=== PATIENT | female | born 1975 | race Caucasian/White ===

== ENCOUNTER 2020-11-11 17:03 | Emergency (ER) | payer OTHER, SELFPAY ==
[2020-11-11] VITALS (14 sets, daily range): BP systolic 139–216; BP diastolic 91–122; PULSE 67–96; RESP 16–23; O2SAT 96–100; BMI 24.5
--- NOTE | 2020-11-11 17:27 | DI.RAD.S_ITS ---
PROCEDURE: XR CHEST 1V INDICATIONS: Hypertension TECHNIQUE: One view of the chest was acquired. COMPARISON: None. FINDINGS: Surgical changes and devices: None. Lungs and pleura: Lungs are clear. No pleural effusions or pneumothorax. Mediastinum: Mediastinal contours appear normal. Heart size is normal. Bones and chest wall: No suspicious bony lesions. Overlying soft tissues appear unremarkable. IMPRESSION: 1. No acute cardiopulmonary disease. Dictated by: Rodger Bah M.D. on 11/11/2020 at 18:30 Approved by: Rodger Bah M.D. on 11/11/2020 at 18:31
[2020-11-11 17:33] LABS: Add Manual Diff / Slide Review NO; Basophils Absolute Auto 100 /uL (0-100); Basophils Percent Auto 0.7 % (0-2); Eosinophils Absolute Auto 100 /uL (0-450); Eosinophils Percent Auto 1.4 % (2-4); Hematocrit 40.8 % (36-46); Hemoglobin 13.8 g/dL (12.0-16.0); Lymphocytes Absolute Auto 1500 /uL (1100-4500); Lymphocytes Percent Auto 21.2 % (25-40); Mean Corpuscular HGB Conc 33.9 % (30-36); Mean Corpuscular Hemoglobin 29.5 PG (26-34); Mean Corpuscular Volume 86.9 fL (80-100); Monocytes Absolute Auto 700 /uL (0-900); Monocytes Percent Auto 10.2 % (3-14); Neutrophils Absolute Auto 4700 /uL (1500-7000); Neutrophils Percent Auto 66.5 % (50-75); Platelet Count 283 X10^3/uL (150-400); Red Blood Cell Count 4.69 X10^6/uL (4.0-5.2); Red Cell Distribution Width 12.2 % (11.6-14.8); White Blood Cell Count 7.1 X10^3/uL (4.5-11.0)
[2020-11-11 17:34] LABS: Prothrombin Time 11.5 SECONDS (10.1-12.7)
[2020-11-11 17:38] LABS: Alanine Aminotransferase 23 IU/L (<35); Albumin 4.4 g/dL (3.5-5.0); Albumin Globulin Ratio 1.3 (1.0-2.8); Alkaline Phosphatase 63 U/L (38-126); Aspartate Aminotransferase 33 IU/L (14-36); BUN Creatinine Ratio 23.5 (6-22); Bilirubin Total 0.5 mg/dL (0.2-1.3); Blood Urea Nitrogen 16 mg/dL (7-17); Calcium 9.2 mg/dL (8.4-10.2); Carbon Dioxide 29 mmol/L (22-32); Chloride 102 mmol/L (98-107); Creatine Kinase 69 U/L (30-135); Estimated Glomerular Filt Rate > 60.0 mL/min (>60); Globulin 3.5 g/dL (1.7-4.1); Glucose 101 mg/dL (70-100); HEMOLYSIS < 15 (0-50); Lipase 173 U/L (23-300); Potassium 3.5 mmol/L (3.4-5.1); Sodium 137 mmol/L (137-145); Total Protein 7.9 g/dL (6.3-8.2)
[2020-11-11 17:50] LABS: NT-proBNP (BNP-Adult 18+) 62 pg/mL (<125); Troponin I < 0.012 ng/mL (0.01-0.034)
[2020-11-11] MEDS: ACETAMINOPHEN 325 MG TABLET 650 MG PO (19:07)
[2020-11-11 19:39] LABS: Troponin I < 0.012 ng/mL (0.01-0.034)
--- NOTE | 2020-11-11 20:08 | ED_ITS ---
HPI - General Adult <NIR Oliveira - Last Filed: 11/11/20 20:26> General Chief complaint: Hypertension Stated complaint: HIGH BLOOD PRESSURE HEADACHES Time Seen by Provider: 11/11/20 17:15 Source: patient Mode of arrival: Ambulatory Limitations: no limitations History of Present Illness HPI narrative: This is a 45 year female, nonsmoker, who has past medical history significant for MS and takes interferon treatment 3 times a week presents to ED with chief complain of elevated blood pressure reading today. Patient does not have known hypertension as diagnosis. Patient was at dental office and blood pressure were elevated up to 180/110 and blood pressure was checked several times at the office. Patient denies chest pain, dyspnea, facial droops, paralysis, increasing numbness from her baseline MS symptoms. She reports some headaches, mild dizziness and not feeling myself and has not been having a good week with MS. Patient's usual MS symptoms as tingling in legs and face which is slightly worse this week. Patient's neurologist Dr. Chand at [facility]. Patient denies any changes in medication recently. Related Data Allergies Allergy/AdvReac Type Severity Reaction Status Date / Time No Known Drug Allergies Allergy Verified 11/11/20 17:17 Review of Systems <NIR Oliveira - Last Filed: 11/11/20 20:26> Review of Systems Narrative: General: Denies fever, chills, fatigue, malaise, sweats. HEENT: See HPI Respiratory: Denies dyspnea, cough, wheezing, hemoptysis, sputum. Cardiovascular: Denies chest pain, palpitations, orthopnea, edema. Gastrointestinal: Denies nausea, vomiting, abdominal pain, diarrhea, constipation, melena. : Denies dysuria, frequency, incontinence, hematuria, urinary retention. Musculoskeletal: Denies weakness, joint pain or bony pain. Skin: Denies rash, skin lesions, or other. Neurologic: See HPI Psychiatric: No concerning psychosocial issues. 12-point review of systems is negative except for those stated above. Patient History <NIR Oliveira - Last Filed: 11/11/20 20:26> Medical History Insomnia Multiple sclerosis Social History Smoking Status: Never smoker Smoking Status: Never smoker alcohol intake frequency: holidays/special occasions only Substance Use Type: does not use Exam <NIR Oliveira - Last Filed: 11/11/20 20:26> Narrative Exam Narrative: GEN: Alert, oriented x 3, well appearing and nourished, and in no acute distress. Head: Normal cephalic, atraumatic. No scalp or temporal tenderness, palpable mass or rash. EYES: Pupils are equal, round, and reactive to light and accommodation. Extraocular muscles are intact bilaterally. There is no subconjunctival hemorrhage, exudate and sclera non-icteric. ENT: Hearing grossly intact. Turbinate without erythema or swelling. Mucous membrane moist, no mucosal lesion. Throat without erythema, tonsillar hypertrophy or exudate. Uvula in midline, airway patent. Neck: Trachea in midline. No JVD, non-tender without lymphadenopathy. No masses or thyroid megaly. Supple, non-tender and no meningeal signs. CARDIAC: Normal regular rate and rhythm without murmurs, gallops, or rubs. No chest wall tenderness. No peripheral edema, cyanosis or pallor. Capillary refill is less than 2 seconds. No carotid bruits. RESPIRATORY: Lungs are cleat to auscultate bilaterally. No cough, wheezes, rales, or rhonchi. No stridor, respiratory distress, increase work of breathing, or accessary muscle used. ABD: Abdomen soft, nontender and non-distended. No guarding or rebound tenderness to palpate. Bowel sounds are normal in all 4 quadrants. There is no palpable masses or organomegaly. EXT: Full painless ROM of all extremities with no loss of sensation, strength, effusion or edema. SKIN: Warm, dry, normal color for patient. No erythema, lesions or rash. BACK: Nontender without deformity or crepitance. No flank tenderness. NEUROLOGICAL: Alert and oriented to place, time and person. No facial droops, dysphasia. CN II-XII intact. Strength and sensation symmetric and intact throughout. Cerebellar testing normal. PSYCHIATRIC: Good judgement and reason, without hallucinations, abnormal affect or abnormal behaviors during the examination. Patient is not suicidal. Initial Vital Signs Initial Vital Signs: Vital Signs Pulse Rate 96 H 11/11/20 17:05 Respiratory Rate 18 11/11/20 17:05 Blood Pressure 216/122 H 11/11/20 17:05 Pulse Oximetry 98 11/11/20 17:05 <Calixto Schultz MD - Last Filed: 11/11/20 23:55> Initial Vital Signs Initial Vital Signs: Vital Signs Pulse Rate 96 H 11/11/20 17:05 Respiratory Rate 18 11/11/20 17:05 Blood Pressure 216/122 H 11/11/20 17:05 Pulse Oximetry 98 11/11/20 17:05 Scores <NIR Oliveira - Last Filed: 11/11/20 20:26> GCS [place] coma scale eye opening: Spontaneous [place] coma scale verbal response: Orientated [place] coma scale motor response: Obey commands [place] coma scale total score: 15 NIH Stroke Scale Level of Conciousness: Alert, keenly responsive Ask month/age: Answers both questions correctly. Open/close eyes, close hand: Performs both tasks correctly Best gaze horizontal: Normal Visual powell: No visual loss Facial palsy: Normal symetrical movement Left arm drift: No drift for full 10 sec Right arm drift: No drift for full 10 sec Left leg drift: No drift for full 5 sec Right leg drift: No drift for full 5 sec Limb ataxia: Absent Sensory on face/arms/legs: Normal, no sensory loss Best language: No aphasia, normal Dysarthria: Normal Extinction or inattention: No abnormality Total NIH Stroke scale score: 0 Course <NIR Oliveira - Last Filed: 11/11/20 20:26> Orders Ordered: ED Orders 11/11/20 17:19 Complete Blood Count AUTO DIFF Stat Comprehensive Metabolic Panel Stat Lipase Stat NT-proBNP (BNP-Adult 18+) Stat Prothrombin Time INR Stat Troponin & CK Cardiac Panel Stat 11/11/20 17:27 XR chest 1V Stat EKG-12 Lead Stat 11/11/20 19:12 Troponin I Stat Discontinued Medications Acetaminophen (Acetaminophen 325 Mg Tablet) 650 mg PO NOW ONE Stop: 11/11/20 19:04 Last Admin: 11/11/20 19:07 Dose: 650 mg Documented by: QUYNH Vital Signs Vital signs: Vital Signs - 8 hr 11/11/20 17:05 11/11/20 17:13 11/11/20 17:21 Pulse Rate 96 H 96 H 96 H Respiratory Rate 18 18 Blood Pressure 216/122 H 203/106 H Pulse Oximetry 98 100 100 11/11/20 17:30 11/11/20 17:57 11/11/20 18:00 Pulse Rate 82 82 75 Respiratory Rate 18 16 18 Blood Pressure 184/100 H 183/91 H Pulse Oximetry 99 97 100 11/11/20 18:15 11/11/20 18:30 11/11/20 18:46 Pulse Rate 79 79 85 Respiratory Rate 18 16 20 Blood Pressure 150/92 H 166/99 H Pulse Oximetry 100 100 100 11/11/20 19:00 11/11/20 19:01 11/11/20 19:30 Pulse Rate 82 79 77 Respiratory Rate 20 23 21 Blood Pressure 152/92 H 150/96 H Pulse Oximetry 100 99 97 11/11/20 19:45 11/11/20 20:00 Pulse Rate 67 76 Respiratory Rate 17 17 Blood Pressure 146/96 H 139/93 H Pulse Oximetry 96 96 <Calixto Schultz MD - Last Filed: 11/11/20 23:55> Orders Ordered: ED Orders 11/11/20 17:19 Complete Blood Count AUTO DIFF Stat Comprehensive Metabolic Panel Stat Lipase Stat NT-proBNP (BNP-Adult 18+) Stat Prothrombin Time INR Stat Troponin & CK Cardiac Panel Stat 11/11/20 17:27 XR chest 1V Stat EKG-12 Lead Stat 11/11/20 19:12 Troponin I Stat Discontinued Medications Acetaminophen (Acetaminophen 325 Mg Tablet) 650 mg PO NOW ONE Stop: 11/11/20 19:04 Last Admin: 11/11/20 19:07 Dose: 650 mg Documented by: QUYNH Vital Signs Vital signs: Vital Signs - 8 hr 11/11/20 17:05 11/11/20 17:13 11/11/20 17:21 Pulse Rate 96 H 96 H 96 H Respiratory Rate 18 18 Blood Pressure 216/122 H 203/106 H Pulse Oximetry 98 100 100 11/11/20 17:30 11/11/20 17:57 11/11/20 18:00 Pulse Rate 82 82 75 Respiratory Rate 18 16 18 Blood Pressure 184/100 H 183/91 H Pulse Oximetry 99 97 100 11/11/20 18:15 11/11/20 18:30 11/11/20 18:46 Pulse Rate 79 79 85 Respiratory Rate 18 16 20 Blood Pressure 150/92 H 166/99 H Pulse Oximetry 100 100 100 11/11/20 19:00 11/11/20 19:01 11/11/20 19:30 Pulse Rate 82 79 77 Respiratory Rate 20 23 21 Blood Pressure 152/92 H 150/96 H Pulse Oximetry 100 99 97 11/11/20 19:45 11/11/20 20:00 Pulse Rate 67 76 Respiratory Rate 17 17 Blood Pressure 146/96 H 139/93 H Pulse Oximetry 96 96 Medical Decision Making <NIR Oliveira - Last Filed: 11/11/20 20:26> Differential Diagnosis Differential Diagnosis: Hypertension, situational stress, ACS, STEMI, stroke Medical Records Medical records reviewed: Yes I reviewed the patient's medical records. Lab Data Lab results reviewed: Yes I reviewed the patient's lab results. Result diagrams: 11/11/20 17:19 11/11/20 17:19 Labs: Lab Results 11/11/20 11/11/20 11/11/20 Range/Units 17:19 17:19 17:19 WBC 7.1 (4.5-11.0) X10^3/uL RBC 4.69 (4.0-5.2) X10^6/uL Hgb 13.8 (12.0-16.0) g/dL Hct 40.8 (36-46) % MCV 86.9 (80-100) fL MCH 29.5 (26-34) PG MCHC 33.9 (30-36) % RDW 12.2 (11.6-14.8) % Plt Count 283 (150-400) X10^3/uL Neut % (Auto) 66.5 (50-75) % Lymph % (Auto) 21.2 L (25-40) % [place] % (Auto) 10.2 (3-14) % Eos % (Auto) 1.4 L (2-4) % Baso % (Auto) 0.7 (0-2) % Neut # (Auto) 4700 (5949-9732) /uL Lymph # (Auto) 1500 (7868-6814) /uL [place] # (Auto) 700 (0-900) /uL Eos # (Auto) 100 (0-450) /uL Baso # (Auto) 100 (0-100) /uL PT 11.5 (10.1-12.7) SECONDS INR 1.0 (0.9-1.3) Sodium 137 (137-145) mmol/L Potassium 3.5 (3.4-5.1) mmol/L Chloride 102 (98-107) mmol/L Carbon Dioxide 29 (22-32) mmol/L BUN 16 (7-17) mg/dL Creatinine 0.68 (0.52-1.04) mg/dL Estimated GFR > 60.0 (>60) mL/min BUN/Creatinine Ratio 23.5 H (6-22) Glucose 101 H (70-100) mg/dL Calcium 9.2 (8.4-10.2) mg/dL Total Bilirubin 0.5 (0.2-1.3) mg/dL AST 33 (14-36) IU/L ALT 23 (<35) IU/L Alkaline Phosphatase 63 (38-126) U/L Total Creatine Kinase 69 (30-135) U/L CK-MB (CK-2) TNP CK-MB (CK-2) Rel Index TNP Troponin I < 0.012 (0.01-0.034) ng/mL NT-Pro-B Natriuret Pep 62 (<125) pg/mL Total Protein 7.9 (6.3-8.2) g/dL Albumin 4.4 (3.5-5.0) g/dL Globulin 3.5 (1.7-4.1) g/dL Albumin/Globulin Ratio 1.3 (1.0-2.8) Lipase 173 (23-300) U/L //20 Range/Units 19:12 WBC (4.5-11.0) X10^3/uL RBC (4.0-5.2) X10^6/uL Hgb (12.0-16.0) g/dL Hct (36-46) % MCV (80-100) fL MCH (26-34) PG MCHC (30-36) % RDW (11.6-14.8) % Plt Count (150-400) X10^3/uL Neut % (Auto) (50-75) % Lymph % (Auto) (25-40) % [place] % (Auto) (3-14) % Eos % (Auto) (2-4) % Baso % (Auto) (0-2) % Neut # (Auto) (9568-8192) /uL Lymph # (Auto) (4392-8575) /uL [place] # (Auto) (0-900) /uL Eos # (Auto) (0-450) /uL Baso # (Auto) (0-100) /uL PT (10.1-12.7) SECONDS INR (0.9-1.3) Sodium (137-145) mmol/L Potassium (3.4-5.1) mmol/L Chloride (98-107) mmol/L Carbon Dioxide (22-32) mmol/L BUN (7-17) mg/dL Creatinine (0.52-1.04) mg/dL Estimated GFR (>60) mL/min BUN/Creatinine Ratio (6-22) Glucose (70-100) mg/dL Calcium (8.4-10.2) mg/dL Total Bilirubin (0.2-1.3) mg/dL AST (14-36) IU/L ALT (<35) IU/L Alkaline Phosphatase (38-126) U/L Total Creatine Kinase (30-135) U/L CK-MB (CK-2) CK-MB (CK-2) Rel Index Troponin I < 0.012 (0.01-0.034) ng/mL NT-Pro-B Natriuret Pep (<125) pg/mL Total Protein (6.3-8.2) g/dL Albumin (3.5-5.0) g/dL Globulin (1.7-4.1) g/dL Albumin/Globulin Ratio (1.0-2.8) Lipase (23-300) U/L Imaging Data Chest x-ray: Radiologist's Impression: [address] [id number] ReportSigned Patient: Yana Teague LMR#: [id number]: [id number]:[id number]/Sex: 45 / FDate of Service: 11/11/20Loc: EDAccession Number: [id number] Procedure: XR chest 1V Ordering Provider: José Antonio Franklin D.O. PROCEDURE: XR CHEST 1V INDICATIONS: Hypertension TECHNIQUE: One view of the chest was acquired. COMPARISON: None. FINDINGS: Surgical changes and devices: None. Lungs and pleura: Lungs are clear. No pleural effusions or pneumothorax. Mediastinum: Mediastinal contours appear normal. Heart size is normal. Bones and chest wall: No suspicious bony lesions. Overlying soft tissues appear unremarkable. IMPRESSION: 1. No acute cardiopulmonary disease. Dictated by: Rodger Bah M.D. on 11/11/2020 at 18:30 Approved by: Rodger Bah M.D. on 11/11/2020 at 18:31 ECG Data Attestation: I personally reviewed and interpreted this ECG as follows: Prior ECG tracings: not available for review Interpretation: Normal sinus rhythm rate at 71. Incomplete right bundle branch block Left dominant axis. OK interval 138, QRS duration 100, QT/QTC 382/[address] abnormality. [facility] Narrative Medical decision making narrative: This is a 45 year female who presents to ED with chief complain of elevated blood pressure today which she was noticed at dental office upto 180/110 with some headaches and dizziness as associated symptoms. Patient's neurological assessment was unremarkable. No facial droops, speech difficulty, paralysis, sensation impairment, vertigo symptoms. EKG shows normal sinus rhythm with incomplete right bundle branch block without acute ST changes but with nonspecific ST and normality. Chest x-ray without acute findings. CBC without indications for anemia or leukocytosis. Mild lymphocytopenia of 21.2 with eosinophil of 1.4. Normal coag test. Unremarkable chemistry test. Two sets of cardiac enzymes were negative. ProBNP was negative. Patient's blood pressure has improved from 216/122 on arrival to ED to gradually decrecased to 139/93. Patient was medicated with Tylenol for headache with marginal improvement. We discussed head CT to rule out other intracranial etiology and stroke evaluation upon arrival but with shared decision making with improving blood pressure, head CT scan was deferred with normal neurological exam. Patient advised to monitor blood pressure a couple of times in a day around the same time for next several days and to follow-up with primary care physician with the findings. Patient and spouse informed with extensive discussion that elevated blood pressure without indications for hyper tensive emergency or crisis. Patient verbalized understanding in agreement with treatment plan. Patient given copy of EKG to follow-up with primary care physician. <Calixto Schultz MD - Last Filed: 11/11/20 23:55> Lab Data Labs: Lab Results 11/11/20 11/11/2011/11/20 Range/Units 17:19 17:19 17:19 WBC 7.1 (4.5-11.0) X10^3/uL RBC 4.69 (4.0-5.2) X10^6/uL Hgb 13.8 (12.0-16.0) g/dL Hct 40.8 (36-46) % MCV 86.9 (80-100) fL MCH 29.5 (26-34) PG MCHC 33.9 (30-36) % RDW 12.2 (11.6-14.8) % Plt Count 283 (150-400) X10^3/uL Neut % (Auto) 66.5 (50-75) % Lymph % (Auto) 21.2 L (25-40) % [place] % (Auto) 10.2 (3-14) % Eos % (Auto) 1.4 L (2-4) % Baso % (Auto) 0.7 (0-2) % Neut # (Auto) 4700 (5175-3368) /uL Lymph # (Auto) 1500 (0471-9904) /uL [place] # (Auto) 700 (0-900) /uL Eos # (Auto) 100 (0-450) /uL Baso # (Auto) 100 (0-100) /uL PT 11.5 (10.1-12.7) SECONDS INR 1.0 (0.9-1.3) Sodium 137 (137-145) mmol/L Potassium 3.5 (3.4-5.1) mmol/L Chloride 102 (98-107) mmol/L Carbon Dioxide 29 (22-32) mmol/L BUN 16 (7-17) mg/dL Creatinine 0.68 (0.52-1.04) mg/dL Estimated GFR > 60.0 (>60) mL/min BUN/Creatinine Ratio 23.5 H (6-22) Glucose 101 H (70-100) mg/dL Calcium 9.2 (8.4-10.2) mg/dL Total Bilirubin 0.5 (0.2-1.3) mg/dL AST 33 (14-36) IU/L ALT 23 (<35) IU/L Alkaline Phosphatase 63 (38-126) U/L Total Creatine Kinase 69 (30-135) U/L CK-MB (CK-2) TNP CK-MB (CK-2) Rel Index TNP Troponin I < 0.012 (0.01-0.034) ng/mL NT-Pro-B Natriuret Pep 62 (<125) pg/mL Total Protein 7.9 (6.3-8.2) g/dL Albumin 4.4 (3.5-5.0) g/dL Globulin 3.5 (1.7-4.1) g/dL Albumin/Globulin Ratio 1.3 (1.0-2.8) Lipase 173 (23-300) U/L 11/11/20 Range/Units 19:12 WBC (4.5-11.0) X10^3/uL RBC (4.0-5.2) X10^6/uL Hgb (12.0-16.0) g/dL Hct (36-46) % MCV (80-100) fL MCH (26-34) PG MCHC (30-36) % RDW (11.6-14.8) % Plt Count (150-400) X10^3/uL Neut % (Auto) (50-75) % Lymph % (Auto) (25-40) % [place] % (Auto) (3-14) % Eos % (Auto) (2-4) % Baso % (Auto) (0-2) % Neut # (Auto) (2149-4217) /uL Lymph # (Auto) (9643-0938) /uL [place] # (Auto) (0-900) /uL Eos # (Auto) (0-450) /uL Baso # (Auto) (0-100) /uL PT (10.1-12.7) SECONDS INR (0.9-1.3) Sodium (137-145) mmol/L Potassium (3.4-5.1) mmol/L Chloride (98-107) mmol/L Carbon Dioxide (22-32) mmol/L BUN (7-17) mg/dL Creatinine (0.52-1.04) mg/dL Estimated GFR (>60) mL/min BUN/Creatinine Ratio (6-22) Glucose (70-100) mg/dL Calcium (8.4-10.2) mg/dL Total Bilirubin (0.2-1.3) mg/dL AST (14-36) IU/L ALT (<35) IU/L Alkaline Phosphatase (38-126) U/L Total Creatine Kinase (30-135) U/L CK-MB (CK-2) CK-MB (CK-2) Rel Index Troponin I < 0.012 (0.01-0.034) ng/mL NT-Pro-B Natriuret Pep (<125) pg/mL Total Protein (6.3-8.2) g/dL Albumin (3.5-5.0) g/dL Globulin (1.7-4.1) g/dL Albumin/Globulin Ratio (1.0-2.8) Lipase (23-300) U/L Discharge Plan Departure Patient Disposition: Home Clinical Impression: Elevated blood pressure reading with diagnosis of hypertension Instructions: Treatments for High Blood Pressure: More Than Just Taking a Pill, DI for High Blood Pressure Activity Restrictions/Additional Instructions: You have been diagnosed with [elevated blood pressure reading today. Your blood pressure improved to 139/93. Lab tests are assuring. Two sets of cardiac enzymes were negative. EKG without acute ST changes. Chest x-ray without acute findings.]. What to do: *Take your medications as directed. As we discussed, please monitor blood pressure a couple of times a day around the same time for a week and keep track on these numbers to discussed with your primary care physician. *Follow up with your primary care provider in 2-3 days, call for an appointment. Let them know you were seen in the ED and that we asked you to be seen in follow up. *Return to ED if you have any new, worsening, or concerning symptoms, such as [chest pain, breathing difficulty, headache, vision change, paralysis, speech difficulty, facial droops, balance difficulty or any acute concerns]. Referrals: [facility] [Outside] <Calixto Schultz MD - Last Filed: 11/11/20 23:55> Cosign ED Attending Harjinderature Attestation: I was immediately available in the department for consultation. This documentation has been reviewed and I agree with assessment and plan. Supervised by Calixto Schultz MD
== END 2020-11-11 20:41 | disposition home or self-care (01) ==
PROVIDERS: Emergency Medicine; Emergency Provider Nurse Practitioner Family
DX: I10 Essential (primary) hypertension (principal); R51.9 Headache, unspecified; R42 Dizziness and giddiness; R20.2 Paresthesia of skin
CPT/HCPCS: 36415; 71045; 80053; 82550; 83690; 83880; 84484; 85025; 85610; 93005; 93010; 99281; 99284

== ENCOUNTER → 2025-04-12 15:47 | Outpatient (CLI) | payer OTHER, SELFPAY ==
--- NOTE | 2025-04-12 15:49 | DI.MRI.S_ITS ---
PROCEDURE: MR SHOULDER RT WO CON INDICATIONS: RT SHOULDER PAIN TECHNIQUE: Noncontrast oblique coronal T2 fast spin echo with fat saturation, oblique sagittal T1 spin echo and T2 fast spin echo with fat saturation, axial T1 spin echo and T2 fast spin echo with fat saturation through the shoulder. COMPARISON: None. FINDINGS: Image quality: Excellent. Diffuse heterogeneous bone marrow with heterogeneous low T1, high T2 signal commonly related to fatty replacement of marrow, hematopoietic marrow however rarely infiltrative process, lymphoma, leukemia or other neoplasm, metabolic bone disease, bone marrow replacement disorders could be considered with a similar appearance. Rotator cuff: Mild increased T2 weighted signal of the mid to distal supraspinatus tendon without full-thickness tear or retraction suggest tendinopathy versus partial tear with mild increased subacromial/subdeltoid bursal fluid. The infraspinatus, and subscapularis, teres minor tendons appear intact throughout. Sagittal images demonstrate no muscle atrophy. Bones and bursae: [id number] degenerative changes of the acromioclavicular joint with capsular hypertrophy and small osteophytes. Mild degenerative changes of the glenohumeral joint. No bone marrow contusions or fracture. The acromion demonstrates conventional anatomy type 1 flat acromion, without an os acromiale. Capsule and soft tissues: Labrum demonstrates mild degenerative changes, thinning superiorly without gross labral tear. The long head of the biceps tendon demonstrates normal location and morphology. IMPRESSION: Tendinopathy versus partial tear mid and distal supraspinatus tendon. Degenerative changes of the acromioclavicular and glenohumeral joints with joint space narrowing and osteophytes. Diffuse heterogeneous bone marrow as discussed above. Dictated by: Bigg Andrews M.D. on 04/13/2025 at 12:42 Approved by: Bigg Andrews M.D. on 04/13/2025 at 13:00
== END ==
LOC: MRI 15:48
PROVIDERS: PCP Family Medicine; Referring Provider Family Medicine; Visit Provider Family Medicine
DX: M25.511 Pain in right shoulder (principal)
CPT/HCPCS: 73221